=== PATIENT | female | born 1930 | race African-American/Black ===

== ENCOUNTER 2016-04-09 18:46 | Emergency (ER) | payer MEDICARE ==
--- NOTE | 2016-04-09 19:03 | ER Document Report ---
ED Medical Screen (RME) - General Stated Complaint: WEAKNESS Time seen by provider: 18:57 Notes: Family members bring patient in today complaining of weakness since yesterday. Patient has been wheezing, short of breath, nasal and chest congestion for several days prior. Denies fever. Patient has a history of TIA, CVA 3, and dementia. I have greeted and performed a rapid initial assessment of this patient. A comprehensive ED assessment and evaluation of the patient, analysis of test results and completion of the medical decision making process will be conducted by additional ED providers. TRAVEL OUTSIDE OF THE [place] IN LAST 30 DAYS: No - Related Data Allergies/Adverse Reactions: Penicillins Allergy (Verified 04/09/16 18:58) Past Medical History - Past Medical History Cardiac Medical History: Reports: Hx Hypertension Neurological Medical History: Reports: Hx Seizures - Immunizations Hx Diphtheria, Pertussis, Tetanus Vaccination: Yes
[2016-04-09] MEDS ORDERED: NORMAL SALINE 500 ML IV PRN (19:27)
--- NOTE | 2016-04-09 19:27 | ER Document Report ---
ED Respiratory Problem - General Chief Complaint: Chest Congestion Stated Complaint: WEAKNESS Time seen by provider: 19:26 Mode of Arrival: Wheelchair Information source: Patient Notes: This is an 86-year-old female with a history of hypertension, CVA, seizures and early onset dementia who is brought into the emergency room because of generalized weakness, low-grade fever, shortness of breath and a nonproductive cough. TRAVEL OUTSIDE OF THE [place] IN LAST 30 DAYS: No - HPI Patient complains to provider of: Cough, Other - Generalized weakness Onset: Just prior to arrival Duration: Continuous Initiating Event: No: Allergy, Aspiration/Choking, Exertion, Exposure to chemicals, Exposure to dust, Exposure to fumes, Exposure to mold, Exposure to smoke, Out of meds, Sports/exercise, URI, Other Quality of pain: No pain Severity: None Pain Level: Denies Chest pain/discomfort: denies: Center, Constant, Heaviness, Intermittent, Left, Pain, Radiates to arm, Radiates to back, Radiates to jaw, Right, Tightness, Worse with deep breaths Cough: Nonproductive Sputum amount: denies: None, Scant, Small, Moderate, Large, Copious Sputum color: denies: Brown, Clear, Creamy, [place], Green, [place] tinged, Red (blood ), Red Specks, Rust, Small Clots, Wick, White, Yellow Sputum consistency: denies: Frothy, Mucoid, Mucoid Plug, Tenacious, Thick, Thin At home treatment: denies: Bronchodilators, CPAP, Diuretics, Inhaled steroids, Oral steroids, Oxygen, Singulair, Theophylline Associated symptoms: Congestion, Cough, Other - Generalized weakness Similar symptoms previously: No Recently seen / treated by doctor: No - Related Data Allergies/Adverse Reactions: Penicillins Allergy (Verified 04/09/16 18:58) Past Medical History - General Information source: Relative - Patient's son - Social History Smoking Status: Never Smoker Cigarette use (# per day): No Chew tobacco use (# tins/day): No Frequency of alcohol use: None Drug Abuse: None Lives with: Family Family History: None Patient has suicidal ideation: No Patient has homicidal ideation: No - Past Medical History Cardiac Medical History: Reports: Hx Hypertension Neurological Medical History: Reports: Hx Seizures Renal/ Medical History: Denies: Hx Peritoneal Dialysis Malignancy Medical History: Reports: None GI Medical History: Reports: None Musculoskeltal Medical History: Reports Hx Arthritis Skin Medical History: Reports None Psychiatric Medical History: Reports: None Traumatic Medical History: Reports: None Infectious Medical History: Reports: None Surgical Hx: Other - Immunizations Hx Diphtheria, Pertussis, Tetanus Vaccination: Yes Review of Systems - Review of Systems Notes: Review of systems: Constitutional: Denies fever, chills. EENT: Denies ear pain, sinus tenderness, throat pain, throat swelling. Cardiovascular: Denies chest pain, palpitations, dyspnea or edema. Respiratory: Nonproductive cough. Denies hemoptysis. Abdomen: Denies abdominal pain, nausea, vomiting, diarrhea. Denies BRBPR or melena. Genitourinary: Denies dysuria, pyuria, hematuria, flank pain. Musculoskeletal: denies joint pain or swelling, denies back pain. Neurologic: Some generalized weakness. Denies headache, photophobia, neck stiffness, weakness. Denies significant change in mental status. Skin: Denies rash, lesions. Physical Exam - Vital signs Vitals: Temp Pulse Resp BP Pulse Ox 99.3 F 91 24 H 157/65 H 96 04/09/16 19:01 04/09/16 19:01 04/09/16 19:01 04/09/16 19:01 04/09/16 19:01 Notes: Physical exam: GENERAL: 86-year-old female, resting comfortably, she does have dementia ( mental status is baseline as per patient's family). Her skin is warm, no distress. She does appear weak. HEAD: Atraumatic, normocephalic. EYES: Pupils equal round and reactive to light, extraocular movements intact, sclera anicteric, conjunctiva are normal. ENT: TMs normal, nares patent, oropharynx clear without exudates. Moist mucous membranes. NECK: Normal range of motion, supple without lymphadenopathy or JVD. LUNGS: Breath sounds clear to auscultation bilaterally and equal. No wheezes rales or rhonchi. HEART: Regular rate and rhythm without murmurs, rubs or gallops. ABDOMEN: Soft, normoactive bowel sounds. No tenderness to palpation. No guarding, no rebound. No masses appreciated. EXTREMITIES: Normal range of motion, no pitting or edema. No clubbing or cyanosis. NEUROLOGICAL: Cranial nerves II through XII grossly intact. Normal speech, moving all extremities. PSYCH: Normal mood, normal affect. SKIN: Warm, Dry, normal turgor, no rashes or lesions noted. Course - Vital Signs Vital signs: Temp Pulse Resp BP Pulse Ox 100.0 F 70 18 141/58 H 96 04/09/16 23:48 04/09/16 23:48 04/09/16 23:48 04/09/16 23:48 04/09/16 23:48 - Laboratory Result Diagrams: 04/09/16 20:25 04/09/16 22:14 Laboratory results interpreted by me: 04/09/16 04/09/16 04/09/16 20:25 21:04 22:14 Plt Count 148 L Seg Neutrophils % 84.2 H Lymphocytes % 10.2 L Chloride 108 H Total Protein 6.2 L Albumin 3.4 L Urine Protein 100 H Urine Blood LARGE H - Diagnostic Test Radiology reviewed: Image reviewed, Reports reviewed - Chest x-ray shows no infiltrates or effusions - EKG Interpretation by Me Rate: Normal Rhythm: NSR - EKG shows normal sinus rhythm with no acute ST-T wave changes, ventricular rate 77. Discharge - Discharge Clinical Impression: bronchitis with bronchospasm Clinical Impression: (Ruled Out): rhonchi at his with bronchospasm Condition: Stable Disposition: HOME, SELF-CARE Instructions: Bronchitis With Bronchospasm (Wheezing) ([facility], [facility]) Additional Instructions: Recommendations: Rest, encourage fluids. Start the antibiotics first thing in the morning. Take the 2 tablets in the morning, then start the Z-Jason the following day. Follow-up with Dr. Dodson: Call the office on Monday. Return to the emergency room for any concerns that Ms. Grant is getting worse , having more difficulty breathing or is not tolerating fluids. Prescriptions: Azithromycin [Zithromax 250 mg Tablet] 250 mg PO ASDIR PRN #6 tablet PRN Reason: Referrals: JAYMIE DODSON MD [Primary Care Provider] - 04/11/16
[2016-04-09 20:36] LABS: ABSOLUTE BASOPHILS # (AUTO) 0.1 10^3/uL (0.0-0.2); ABSOLUTE LYMPHOCYTES (AUTO) 0.8 10^3/uL (0.5-4.7); ABSOLUTE MONOCYTES (AUTO) 0.4 10^3/uL (0.1-1.4); ABSOLUTE NEUT (AUTO) 6.6 10^3/uL (1.7-8.2); BASOPHILS % (AUTO) 0.7 % (0-2); EOSINOPHILS % (AUTO) 0.1 % (0-6); HEMATOCRIT 40.1 % (36.0-47.0); HEMOGLOBIN 13.4 g/dL (12.0-15.5); HGB HCT DIFFERENCE 0.1; LYMPHOCYTES % (AUTO) 10.2 % (13-45); MEAN CORPUSCULAR HEMOGLOBIN 30.5 pg (27.0-33.4); MEAN CORPUSCULAR HGB CONC 33.5 g/dL (32.0-36.0); MEAN CORPUSCULAR VOLUME 91 fl (80-97); MONOCYTES % (AUTO) 4.8 % (3-13); RED BLOOD COUNT 4.41 10^6/uL (3.72-5.28); RED CELL DISTRIBUTION WIDTH 13.5 % (11.5-14.0); SEGMENTED NEUTROPHILS % (AUTO) 84.2 % (42-78); WHITE BLOOD COUNT 7.8 10^3/uL (4.0-10.5)
[2016-04-09 21:22] LABS: APPEARANCE,URINE SLIGHTLY-CLOUDY; BILIRUBIN,URINE NEGATIVE (NEGATIVE); GLUCOSE, URINE NEGATIVE (NEGATIVE); KETONES,URINE NEGATIVE (NEGATIVE); LEUKOCYTE ESTERASE,URINE NEGATIVE (NEGATIVE); NITRITE,URINE NEGATIVE (NEGATIVE); PROTEIN,URINE 100 mg/dL (NEGATIVE); URINE SPECIFIC GRAVITY 1.017; UROBILINOGEN,URINE NEGATIVE mg/dL (<2.0)
--- NOTE | 2016-04-09 22:10 | EKG REPORT ---
SEVERITY:- ABNORMAL ECG - SINUS RHYTHM LEFT ANTERIOR FASCICULAR BLOCK CONSIDER LEFT VENTRICULAR HYPERTROPHY : Confirmed by: Armando Gleason 09-Apr-2016 22:10:31
[2016-04-09 22:42] LABS: ALANINE AMINOTRANSFERASE 36 U/L (9-52); ALBUMIN 3.4 g/dL (3.5-5.0); ALKALINE PHOSPHATASE 66 U/L (38-126); ANION GAP 11 (5-19); ASPARTATE AMINO TRANSFERASE 34 U/L (14-36); BILIRUBIN,TOTAL 0.3 mg/dL (0.2-1.3); BLOOD UREA NITROGEN 15 mg/dL (7-20); CARBON DIOXIDE 24 mmol/L (22-30); CHLORIDE 108 mmol/L (98-107); CREATINE KINASE 39 U/L (30-135); GLUCOSE 107 mg/dL (75-110); POTASSIUM 4.1 mmol/L (3.6-5.0); SODIUM 142.6 mmol/L (137-145); TOTAL PROTEIN 6.2 g/dL (6.3-8.2)
[2016-04-09 22:56] LABS: CREATINE KINASE MB < 0.22 ng/mL (<4.55); TROPONIN I < 0.012 ng/mL
[2016-04-09] MEDS ORDERED: AZITHROMYCIN 250 MG TABLET PO ONE (23:11)
[2016-04-09 23:51] VITALS: BP 141/58
== END 2016-04-09 23:45 | disposition home or self-care (01) ==
LOC: ER 18:46
DX: J40 Bronchitis, not specified as acute or chronic (principal); J98.01 Acute bronchospasm; R53.1 Weakness; R06.02 Shortness of breath; R05 Cough; I10 Essential (primary) hypertension; F03.90 Unspecified dementia, unspecified severity, without behavioral disturbance, psychotic disturbance, mood disturbance, and anxiety; Z86.73 Personal history of transient ischemic attack (TIA), and cerebral infarction without residual deficits; Z88.0 Allergy status to penicillin
CPT/HCPCS: 93005; 99284; 96360; 36415; 82553; 82550; 85025; 85610; 80053; 81001; 84484; 87804; 71010; 93010; J7040

== ENCOUNTER 2016-04-11 23:49 | Inpatient (IN) | payer MEDICARE ==
--- NOTE | 2016-04-12 00:10 | ER Document Report ---
ED Medical Screen (RME) - General Chief Complaint: Fever Stated Complaint: FEVER Time seen by provider: 00:06 Mode of Arrival: Wheelchair Information source: Relative Notes: 86-year-old female presents to ED for fever this started this evening about 7 PM. Her daughter states that at first it was 99.3, then the next time her temperature was taken was 101.4 around 8:30 tonight. Then around 11:00 it was 102.6. Daughter states she's been more and more thorough lethargic night tonight. Daughter states she was just in the emergency room on Monday evening with a fever chest congestion and wheezing. She was diagnosed with a virus since pneumonia. Patient was started on azithromycin that she started Monday morning. I have greeted and performed a rapid initial assessment of this patient. A comprehensive ED assessment and evaluation of the patient, analysis of test results and completion of medical decision making process will be conducted by an additional ED providers. TRAVEL OUTSIDE OF THE [place] IN LAST 30 DAYS: No - Related Data Allergies/Adverse Reactions: Penicillins Allergy (Verified 04/09/16 18:58) Past Medical History - Past Medical History Cardiac Medical History: Reports: Hx Hypertension Neurological Medical History: Reports: Hx Seizures Renal/ Medical History: Denies: Hx Peritoneal Dialysis Musculoskeltal Medical History: Reports Hx Arthritis - Immunizations Hx Diphtheria, Pertussis, Tetanus Vaccination: Yes
[2016-04-12] MEDS ORDERED: ACETAMINOPHEN 325 MG TABLET PO ONE (00:14)
[2016-04-12] MEDS ORDERED: ACETAMINOPHEN 650 MG SUPP.RECT PR ONE ×2 (00:22→00:23)
[2016-04-12] MEDS ORDERED: NORMAL SALINE 1000 ML 1,000 ML IV ONE (00:23)
[2016-04-12] MEDS ORDERED: ACETAMINOPHEN 325 MG SUPP.RECT PR ONE (00:23)
[2016-04-12] MEDS ORDERED: LEVOFLOXACIN 750 MG/D5W RTU 150 ML IV ONE (00:24)
[2016-04-12] MEDS ORDERED: CEFEPIME 1 GM/D5W RTU 50 ML IV ONE (00:24)
--- NOTE | 2016-04-12 00:24 | ER Document Report ---
ED General - General Mode of Arrival: Wheelchair Information source: Patient TRAVEL OUTSIDE OF THE [place] IN LAST 30 DAYS: No - HPI Patient complains to provider of: Fever Onset: Other - 04/08/2016 Onset/Duration: Worse Associated symptoms: Productive cough, Fever <SUZE REYNOSO - Last Filed: 04/12/16 05:11> <XOCHILT HANSEN - Last Filed: 04/12/16 06:27> - General Chief Complaint: Fever Stated Complaint: FEVER Notes: Patient is an 86 y/o female presenting to the emergency department accompanied by a family member who is concerned because the patient has an increasing fever and is intermittently unresponsive. Patient was seen here 04/09/2016 and discharged with Zythromycin, which she began taking 04/10/2016. Patient is experiencing cough, wheeze, chest congestion, and fever. All of these symptoms began 04/08/2016, but have progressively worsened. (SUZE REYNOSO) - Related Data Allergies/Adverse Reactions: Penicillins Allergy (Verified 04/09/16 18:58) Home Medications: Current Home Medications Amlodipine/Valsartan [Amlodipine-Valsartan 5-160 mg] 1 each PO DAILY 04/12/16 [ History] Bimatoprost [Lumigan] 1 drop OP DAILY 04/12/16 [History] Clopidogrel Bisulfate [Clopidogrel] 75 mg PO DAILY 04/12/16 [History] Cyanocobalamin/FA/Pyridoxine [Combgen Tablet] 1 each PO 04/12/16 [History] Donepezil HCl 10 mg PO DAILY 04/12/16 [History] Hydrochlorothiazide 12.5 mg PO DAILY 04/12/16 [History] Lamotrigine [Lamictal Xr] 200 mg PO DAILY 04/12/16 [History] Levetiracetam 500 mg PO BID 04/12/16 [History] Megestrol Acetate 40 mg PO DAILY 04/12/16 [History] Memantine HCl [Namenda Xr] 28 mg PO DAILY 04/12/16 [History] Past Medical History - General Information source: Relative - Social History Smoking Status: Former Smoker Frequency of alcohol use: None Drug Abuse: None Family History: None, Reviewed & Not Pertinent Patient has suicidal ideation: No Patient has homicidal ideation: No - Past Medical History Cardiac Medical History: Reports: Hx Hypertension Neurological Medical History: Reports: Hx Seizures Musculoskeltal Medical History: Reports Hx Arthritis - Immunizations Hx Diphtheria, Pertussis, Tetanus Vaccination: Yes <SUZE REYNOSO - Last Filed: 04/12/16 05:11> Review of Systems - Review of Systems Constitutional: See HPI, Fever EENT: No symptoms reported Cardiovascular: No symptoms reported Respiratory: See HPI, Cough, Wheezing Gastrointestinal: No symptoms reported Genitourinary: No symptoms reported Female Genitourinary: No symptoms reported Musculoskeletal: No symptoms reported Skin: No symptoms reported Hematologic/Lymphatic: No symptoms reported Neurological/Psychological: No symptoms reported -: Yes All other systems reviewed and negative <SUZE REYNOSO - Last Filed: 04/12/16 05:11> Physical Exam - Vital signs Interpretation: Tachycardic, Febrile - General General appearance: Other - Drowsy but arousable In distress: Mild - HEENT Head: Normocephalic, Atraumatic Eyes: Normal Pupils: PERRL - Respiratory Breath sounds: Decreased air movement - Left base, Rales - Left base <SUZE REYNOSO - Last Filed: 04/12/16 05:11> - Cardiovascular Rhythm: Regular - Abdominal Inspection: Normal Tenderness: Nontender - Back Back: Normal - Extremities General upper extremity: Normal inspection, Normal ROM General lower extremity: Normal inspection, Normal ROM - Skin Skin Temperature: Warm Skin Moisture: Dry Skin Color: Normal <XOCHILT HANSEN - Last Filed: 04/12/16 06:27> - Vital signs Vitals: Resp 20 04/12/16 00:38 (XOCHILT HANSEN) Course - Laboratory Result Diagrams: 04/12/16 01:00 04/12/16 01:36 - Consults Jolly Time consulted: 02:30 - Paged. Awaiting return call. <SUZE REYNOSO - Last Filed: 04/12/16 05:11> - Laboratory Result Diagrams: 04/12/16 01:00 04/12/16 01:36 - Diagnostic Test Radiology reviewed: Reports reviewed <XOCHILT HANSEN - Last Filed: 04/12/16 06:27> - Re-evaluation Re-evalutation: 04/11 Patient is an 86-year-old female who presents with fever and altered mental status. Patient had a cough. Patient has decreased breath sounds and rales in the left base. Initial temperature is 103. Patient is given fluids and acetaminophen. She is more awake and less confused. Patient been treated with outpatient azithromycin and has continued to worsen per her family. Flu is negative. Patient will be started on antibiotics with culture sent and admitted for further evaluation of her symptoms. Stable time of admission. Family agrees with plan. (XOCHILT HANSEN) - Vital Signs Vital signs: Temp Pulse Resp BP Pulse Ox 98.8 F 73 20 154/68 H 100 04/12/16 06:00 04/12/16 06:00 04/12/16 06:00 04/12/16 06:00 04/12/16 06:00 (XOCHILT HANSEN) - Laboratory Laboratory results interpreted by me: 04/12/16 04/12/16 04/12/16 01:00 01:36 01:50 Plt Count 134 L Chloride 108 H Est GFR (Non-Af Amer) 57 L Glucose 129 H AST 41 H Albumin 3.0 L Urine Protein 100 H Urine Blood MODERATE H (XOCHILT HANSEN) - Consults Jolly Reason for consultation: 04/12/16 03:32 Have not heard back from Dr. Azevedo, so re-paged. Awaiting call back. 04/12/16 04:[address] Azevedo about patient's case. He will admit patient. (SUZE REYNOSO) Discharge <SUZE REYNOSO - Last Filed: 04/12/16 05:11> - Discharge Admitting Provider: Jolly Unit Admitted: Telemetry <XOCHILT HANSEN - Last Filed: 04/12/16 06:27> - Discharge Clinical Impression: Fever Qualifiers: Fever type: unspecified Qualified Code(s): R50.9 - Fever, unspecified Altered mental status Qualifiers: Altered mental status type: unspecified Qualified Code(s): R41.82 - Altered mental status, unspecified Condition: Stable Disposition: ADMITTED INPATIENT Scribe Attestation: 04/12/16 06:27 I personally performed the services described in the documentation, reviewed and edited the documentation which was dictated to the scribe in my presence, and it accurately records my words and actions. (XOCHILT HANSEN) Scribe Documentation - Scribe Written by Jessica:: Suze Reynoso 04/12/2016 0023 acting as scribe for :: Panda <SUZE REYNOSO - Last Filed: 04/12/16 05:11>
[2016-04-12 01:24] LABS: ABSOLUTE LYMPHOCYTES (AUTO) 0.9 10^3/uL (0.5-4.7); ABSOLUTE MONOCYTES (AUTO) 0.3 10^3/uL (0.1-1.4); ABSOLUTE NEUT (AUTO) 4.2 10^3/uL (1.7-8.2); BASOPHILS % (AUTO) 0.4 % (0-2); EOSINOPHILS % (AUTO) 0.8 % (0-6); HEMATOCRIT 36.2 % (36.0-47.0); HEMOGLOBIN 12.2 g/dL (12.0-15.5); HGB HCT DIFFERENCE 0.4; LYMPHOCYTES % (AUTO) 16.2 % (13-45); MEAN CORPUSCULAR HEMOGLOBIN 30.6 pg (27.0-33.4); MEAN CORPUSCULAR HGB CONC 33.6 g/dL (32.0-36.0); MEAN CORPUSCULAR VOLUME 91 fl (80-97); MONOCYTES % (AUTO) 5.8 % (3-13); RED BLOOD COUNT 3.98 10^6/uL (3.72-5.28); RED CELL DISTRIBUTION WIDTH 13.8 % (11.5-14.0); SEGMENTED NEUTROPHILS % (AUTO) 76.8 % (42-78); WHITE BLOOD COUNT 5.4 10^3/uL (4.0-10.5)
[2016-04-12 01:49] LABS: VENOUS BLOOD BASE EXCESS -0.3 mmol/L; VENOUS BLOOD HCO3 24.3 mmol/L (20-32); VENOUS BLOOD PCO2 39.9 mmHg (35-63); VENOUS BLOOD PH 7.4 (7.30-7.42)
[2016-04-12 02:11] LABS: ALANINE AMINOTRANSFERASE 27 U/L (9-52); ALKALINE PHOSPHATASE 61 U/L (38-126); ANION GAP 10 (5-19); ASPARTATE AMINO TRANSFERASE 41 U/L (14-36); BILIRUBIN,TOTAL 0.5 mg/dL (0.2-1.3); BLOOD UREA NITROGEN 20 mg/dL (7-20); CARBON DIOXIDE 24 mmol/L (22-30); CHLORIDE 108 mmol/L (98-107); CREATINE KINASE 76 U/L (30-135); CREATININE RESULT 0.93 mg/dL (0.52-1.25); GLUCOSE 129 mg/dL (75-110); POTASSIUM 4.1 mmol/L (3.6-5.0); TOTAL PROTEIN 6.4 g/dL (6.3-8.2)
[2016-04-12] MEDS ORDERED: CEFEPIME 1 GM/D5W RTU 1 GM/50 ML RTUPB IV ONE (02:36)
[2016-04-12 02:46] LABS: APPEARANCE,URINE SLIGHTLY-CLOUDY; BILIRUBIN,URINE NEGATIVE (NEGATIVE); GLUCOSE, URINE NEGATIVE (NEGATIVE); KETONES,URINE NEGATIVE (NEGATIVE); LEUKOCYTE ESTERASE,URINE NEGATIVE (NEGATIVE); NITRITE,URINE NEGATIVE (NEGATIVE); PROTEIN,URINE 100 mg/dL (NEGATIVE); URINE SPECIFIC GRAVITY 1.017; UROBILINOGEN,URINE NEGATIVE mg/dL (<2.0)
[2016-04-12] MEDS ORDERED: NORMAL SALINE 1000 ML 1,000 ML IV PRN (08:24)
[2016-04-12] MEDS ORDERED: ACETAMINOPHEN 325 MG TABLET PO PRN (08:27)
--- NOTE | 2016-04-12 08:44 | PDOC H&P ---
History of Present Illness Admission Date/PCP: 04/12/16 02:36 Patient complains of: Fever, Cough, Change in mentation History of Present Illness: RUBIN VARGAS is a 86 year old female presented to ED by family with reported worsening altered mentation, fever and coughing since her discharegd from ED on 04/09/16. Family reported administration of prescribed Azithromycin but her temperature was recorded at home at 101 and 102 F prior to presenting to the ED. Family reported associated chest congestion and wheezing. There is no reported nausea or vomiting. She was tolerating oral intake prior to her worsen mental change. Her initial evaluation in the Ed was suggestive of abnormal urinalysis and possible early developing pneumonia. Patient was subsequently advised hospitalization for further evaluation and management. Past Medical History Cardiac Medical History: Reports: Hypertension Neurological Medical History: Reports: Seizures Musculoskeltal Medical History: Reports: Arthritis Social History Smoking Status: Never Smoker Frequency of Alcohol Use: None Hx Recreational Drug Use: No Drugs: None Hx Prescription Drug Abuse: No Family History Family History: None, Reviewed & Not Pertinent Parental Family History Reviewed: Yes Children Family History Reviewed: Yes Sibling(s) Family History Reviewed.: Yes Medication/Allergy Home Medications: Azithromycin [Zithromax 250 mg Tablet] 250 mg PO ASDIR PRN #6 tablet 04/09/16 Amlodipine/Valsartan [Amlodipine-Valsartan 5-160 mg] 1 each PO DAILY 04/12/16 Bimatoprost [Lumigan] 1 drop OP DAILY 04/12/16 Clopidogrel Bisulfate [Clopidogrel] 75 mg PO DAILY 04/12/16 Cyanocobalamin/FA/Pyridoxine [Combgen Tablet] 1 each PO 04/12/16 Donepezil HCl 10 mg PO DAILY 04/12/16 Hydrochlorothiazide 12.5 mg PO DAILY 04/12/16 Lamotrigine [Lamictal Xr] 200 mg PO DAILY 04/12/16 Levetiracetam 500 mg PO BID 04/12/16 Megestrol Acetate 40 mg PO DAILY 04/12/16 Memantine HCl [Namenda Xr] 28 mg PO DAILY 04/12/16 Allergies/Adverse Reactions: Penicillins Allergy (Verified 04/09/16 18:58) Review of Systems All systems: reviewed and no additional remarkable complaints except as stated Physical Exam Vital Signs: Temp Pulse Resp BP Pulse Ox 98.4 F 62 17 145/57 H 97 04/12/16 06:59 04/12/16 06:59 04/12/16 06:59 04/12/16 06:59 04/12/16 06:59 Intake & Output 04/11/16 04/12/16 04/13/16 06:59 06:59 06:59 Weight 26.4 kg General appearance: PRESENT: cooperative Head exam: PRESENT: atraumatic, normocephalic Eye exam: PRESENT: conjunctiva pink, EOMI, PERRLA Ear exam: PRESENT: normal external ear exam Mouth exam: PRESENT: moist Throat exam: ABSENT: post pharyngeal erythema, tonsillar erythema, tonsillar exudate, tonsillogmegaly, other Neck exam: PRESENT: full ROM. ABSENT: carotid bruit, JVD, lymphadenopathy, thyromegaly Respiratory exam: PRESENT: decreased breath sounds - at lung bases. ABSENT: accessory muscle use, chest wall tenderness, clear to auscultation laura, crackles , prolonged expiratory phas, rales, retraction, rhonchi, stridor, symmetrical, tachypnea, unlabored, wheezes, other Cardiovascular exam: PRESENT: RRR. ABSENT: diastolic murmur, rubs, systolic murmur Pulses: PRESENT: normal dorsalis pedis pul, +2 pedal pulses bilateral Vascular exam: PRESENT: normal capillary refill GI/Abdominal exam: PRESENT: normal bowel sounds, soft. ABSENT: distended, guarding, mass, organolmegaly, rebound, tenderness Extremities exam: PRESENT: full ROM Musculoskeletal exam: PRESENT: deformity - related to joint involvement with arthritis Psychiatric exam: PRESENT: appropriate affect Skin exam: PRESENT: dry, intact, warm. ABSENT: cyanosis, rash Results Impressions: Chest X-Ray 04/12/16 00:00 IMPRESSION: NO ACUTE RADIOGRAPHIC FINDING IN THE CHEST. NO SIGNIFICANT CHANGE FROM PRIOR STUDY. Assessment & Plan - Diagnosis (2) Pneumonia Is this a current diagnosis for this admission?: YesPlan: see admitting physician orders (3) Probable sepsis Is this a current diagnosis for this admission?: YesPlan: see admitting physician orders (4) UTI (urinary tract infection) Is this a current diagnosis for this admission?: YesPlan: see admitting physician orders (5) HTN (hypertension) Is this a current diagnosis for this admission?: YesPlan: see admitting physician orders (6) Seizure disorder Is this a current diagnosis for this admission?: YesPlan: see admitting physician orders - Time Time Spent: 50 to 70 Minutes Medications reviewed and adjusted accordingly: Yes Anticipated discharge: Home with Homehealth - Inpatient Certification Medical Necessity: Need Close Monitoring Due to Risk of Patient Decompensation, Need For IV Fluids, Need for IV Antibiotics, Risk of Complication if Not Cared For in Hospital Post Hospital Care: D/C Control Systems Specialist Documentation - Plan Summary Plan Summary: see admitting physician orders
[2016-04-12] MEDS ORDERED: ENOXAPARIN SODIUM INJ 30 MG/0.3 ML DISP.SYRIN SUBCUT ONE (09:00)
[2016-04-12] MEDS ORDERED: AMLODIPINE PO SCH (10:00)
[2016-04-12] MEDS ORDERED: (PENDING PHARMACY ID) (Megestrol Acetate [Megestrol Acetate] 40 MG) PO SCH (10:00)
[2016-04-12] MEDS ORDERED: VALSARTAN PO SCH (10:00)
[2016-04-12] MEDS ORDERED: (PENDING PHARMACY ID) (Memantine Hcl [Namenda Xr] 28 MG) PO SCH (10:00)
[2016-04-12] MEDS ORDERED: (PENDING PHARMACY ID) (Lamotrigine [Lamictal Xr] 200 MG) PO SCH (10:00)
[2016-04-12] MEDS ORDERED: (PENDING PHARMACY ID) (Donepezil Hcl [Donepezil Hcl] 10 MG) PO SCH (10:00)
[2016-04-12] MEDS: LANSOPRAZOLE 30 MG TAB.RAP.DR PO SCH (10:04)
[2016-04-12] MEDS: CLOPIDOGREL BISULFATE 75 MG TABLET PO SCH (10:04)
[2016-04-12] MEDS: BIMATOPROST 0.01% OPH SOLN 2.5 ML/BOTTLE OP SCH (10:05)
[2016-04-12] MEDS: LEVETIRACETAM 500 MG TABLET PO SCH ×2 (10:05→21:26)
[2016-04-12] MEDS ORDERED: AMLODIPINE BESYLATE 5 MG TABLET PO ONE (11:00)
[2016-04-12] MEDS ORDERED: VALSARTAN 160 MG TABLET PO ONE (11:00)
[2016-04-12] MEDS ORDERED: DONEPEZIL HCL 5 MG TABLET PO ONE (11:00)
[2016-04-12] MEDS ORDERED: MEGESTROL ACETATE 20 MG TABLET PO ONE (11:00)
[2016-04-12 11:08] LABS: PARTIAL THROMBOPLASTIN TIME 39.6 SEC (23.5-35.8); PROTHROMBIN TIME 13.9 SEC (11.4-15.4)
[2016-04-12] MEDS: LAMOTRIGINE 100 MG TABLET PO SCH (21:26)
[2016-04-12] MEDS: CEFEPIME 1 GM/D5W RTU 50 ML IV SCH (21:27)
[2016-04-12] MEDS: TIMOLOL MALEATE 0.5% OPH SOLN 5 ML OU SCH (21:52)
[2016-04-12] MEDS: BRIMONIDINE TARTRATE 0.2% OPH SOLN 5 ML OU SCH (21:52)
[2016-04-13] MEDS ORDERED: EPOETIN ALFA 10,000 UNIT in SYRINGE, DISPOSABLE, 1 EACH IV PRN (05:00)
[2016-04-13] MEDS ORDERED: HEPARIN SOD (PORCINE) 1,000 UNIT/ML 10 ML VIAL IV PRN (05:00)
[2016-04-13 07:45] LABS: ABSOLUTE EOSINOPHILS # (AUTO) 0.1 10^3/uL (0.0-0.6); ABSOLUTE LYMPHOCYTES (AUTO) 1.4 10^3/uL (0.5-4.7); ABSOLUTE MONOCYTES (AUTO) 0.4 10^3/uL (0.1-1.4); ABSOLUTE NEUT (AUTO) 2.7 10^3/uL (1.7-8.2); BASOPHILS % (AUTO) 0.2 % (0-2); EOSINOPHILS % (AUTO) 1.2 % (0-6); HEMATOCRIT 31.8 % (36.0-47.0); HEMOGLOBIN 10.9 g/dL (12.0-15.5); HGB HCT DIFFERENCE 0.9; LYMPHOCYTES % (AUTO) 30.4 % (13-45); MEAN CORPUSCULAR HEMOGLOBIN 30.7 pg (27.0-33.4); MEAN CORPUSCULAR HGB CONC 34.2 g/dL (32.0-36.0); MEAN CORPUSCULAR VOLUME 90 fl (80-97); MONOCYTES % (AUTO) 9.3 % (3-13); RED BLOOD COUNT 3.54 10^6/uL (3.72-5.28); RED CELL DISTRIBUTION WIDTH 12.9 % (11.5-14.0); SEGMENTED NEUTROPHILS % (AUTO) 58.9 % (42-78); WHITE BLOOD COUNT 4.6 10^3/uL (4.0-10.5)
[2016-04-13 08:10] LABS: ALANINE AMINOTRANSFERASE 28 U/L (9-52); ALBUMIN 2.7 g/dL (3.5-5.0); ALKALINE PHOSPHATASE 49 U/L (38-126); ANION GAP 9 (5-19); ASPARTATE AMINO TRANSFERASE 26 U/L (14-36); BILIRUBIN,TOTAL 0.4 mg/dL (0.2-1.3); BLOOD UREA NITROGEN 13 mg/dL (7-20); CALCIUM 8.7 mg/dL (8.4-10.2); CARBON DIOXIDE 20 mmol/L (22-30); CHLORIDE 112 mmol/L (98-107); CREATININE RESULT 0.64 mg/dL (0.52-1.25); GLUCOSE 89 mg/dL (75-110); POTASSIUM 3.8 mmol/L (3.6-5.0); SODIUM 140.9 mmol/L (137-145); TOTAL PROTEIN 5.2 g/dL (6.3-8.2)
[2016-04-13] MEDS: ENOXAPARIN SODIUM INJ 30 MG/0.3 ML DISP.SYRIN SUBCUT SCH (08:15)
--- NOTE | 2016-04-13 08:30 | PDOC PROGRESS REPORT ---
Subjective Progress Note for:: 04/13/16 Subjective:: No reported fever or chills. No nausea or vomiting. Tolerating oral feeding. Nonspecific cc about LLQ pain. No chest pain or difficulty with breathing. Remain on IV Cefepime and Levofloxacin coverage. Blood and Urine cultures are no growth to date. Physical Exam Vital Signs: Temp Pulse Resp BP Pulse Ox 98.4 F 59 L 17 150/71 H 100 04/13/16 04:43 04/13/16 07:00 04/13/16 04:43 04/13/16 06:00 04/13/16 04:43 Intake & Output 04/12/16 04/13/16 04/14/16 06:59 06:59 06:59 Intake Total 2004 Output Total 150 Balance 1854 General appearance: PRESENT: no acute distress, thin Head exam: PRESENT: atraumatic, normocephalic Eye exam: PRESENT: conjunctiva pink, EOMI, PERRLA Mouth exam: PRESENT: moist Respiratory exam: PRESENT: crackles, decreased breath sounds. ABSENT: accessory muscle use, chest wall tenderness, clear to auscultation laura, prolonged expiratory phas, rales, retraction, rhonchi, stridor, symmetrical, tachypnea, unlabored, wheezes, other Cardiovascular exam: PRESENT: RRR. ABSENT: diastolic murmur, rubs, systolic murmur GI/Abdominal exam: PRESENT: normal bowel sounds, soft. ABSENT: distended, guarding, mass, organolmegaly, rebound, tenderness Extremities exam: PRESENT: full ROM Musculoskeletal exam: PRESENT: deformity - related to joint arthritis involvement, other - generalized muscle wasting. Neurological exam: PRESENT: alert, awake Psychiatric exam: PRESENT: appropriate affect, normal mood. ABSENT: homicidal ideation, suicidal ideation Skin exam: PRESENT: dry, intact, warm. ABSENT: cyanosis, rash Results Laboratory Results: 04/13/16 06:52 04/13/16 06:52 04/13/16 04/13/16 06:52 06:52 WBC 4.6 RBC 3.54 L Hgb 10.9 L Hct 31.8 L MCV 90 MCH 30.7 MCHC 34.2 RDW 12.9 Plt Count 127 L Seg Neutrophils % 58.9 Lymphocytes % 30.4 Monocytes % 9.3 Eosinophils % 1.2 Basophils % 0.2 Absolute Neutrophils 2.7 Absolute Lymphocytes 1.4 Absolute Monocytes 0.4 Absolute Eosinophils 0.1 Absolute Basophils 0.0 Sodium 140.9 Potassium 3.8 Chloride 112 H Carbon Dioxide 20 L Anion Gap 9 BUN 13 Creatinine 0.64 Est GFR ( Amer) > 60 Est GFR (Non-Af Amer) > 60 Glucose 89 Calcium 8.7 Total Bilirubin 0.4 AST 26 ALT 28 Alkaline Phosphatase 49 Total Protein 5.2 L Albumin 2.7 L Impressions: Chest X-Ray 04/12/16 00:00 IMPRESSION: NO ACUTE RADIOGRAPHIC FINDING IN THE CHEST. NO SIGNIFICANT CHANGE FROM PRIOR STUDY. Assessment & Plan - Diagnosis (1) Toxic metabolic encephalopathy Is this a current diagnosis for this admission?: YesPlan: Improving mental status and in simple responses. (2) Pneumonia Is this a current diagnosis for this admission?: YesPlan: see attending physician orders (3) Probable sepsis Is this a current diagnosis for this admission?: YesPlan: see attending physician orders (4) UTI (urinary tract infection) Is this a current diagnosis for this admission?: YesPlan: see attending physician orders (5) HTN (hypertension) Is this a current diagnosis for this admission?: YesPlan: see attending physician orders (6) Seizure disorder Is this a current diagnosis for this admission?: YesPlan: see attending physician orders - Time Time Spent with patient: 25-34 minutes Medications reviewed and adjusted accordingly: Yes Anticipated discharge: Home with Homehealth Within: Other - Inpatient Certification Medical Necessity: Need Close Monitoring Due to Risk of Patient Decompensation, Need For IV Fluids, Need for IV Antibiotics, Risk of Complication if Not Cared For in Hospital Post Hospital Care: D/C Director Of Cardiac Rehabilitation Documentation - Plan Summary Plan Summary: see attending physician orders.
[2016-04-13] MEDS: MEGESTROL ACETATE 20 MG TABLET PO SCH (09:58)
[2016-04-13] MEDS: LAMOTRIGINE 100 MG TABLET PO SCH ×2 (09:59→21:31)
[2016-04-13] MEDS: LEVETIRACETAM 500 MG TABLET PO SCH ×2 (09:59→21:31)
[2016-04-13] MEDS: VALSARTAN 160 MG TABLET PO SCH (10:00)
[2016-04-13] MEDS: CLOPIDOGREL BISULFATE 75 MG TABLET PO SCH (10:00)
[2016-04-13] MEDS ORDERED: AMLODIPINE BESYLATE 5 MG TABLET PO SCH (10:00)
[2016-04-13] MEDS ORDERED: ALCAFTADINE OU SCH (10:00)
[2016-04-13] MEDS: DONEPEZIL HCL 5 MG TABLET PO SCH (10:00)
[2016-04-13] MEDS: LANSOPRAZOLE 30 MG TAB.RAP.DR PO SCH (10:01)
[2016-04-13] MEDS: TIMOLOL MALEATE 0.5% OPH SOLN 5 ML OU SCH ×2 (10:05→21:31)
[2016-04-13] MEDS: BRIMONIDINE TARTRATE 0.2% OPH SOLN 5 ML OU SCH ×2 (10:06→21:31)
[2016-04-13] MEDS: BIMATOPROST 0.01% OPH SOLN 2.5 ML/BOTTLE OP SCH (10:07)
[2016-04-13] MEDS ORDERED: AMLODIPINE BESYLATE 5 MG TABLET PO ONE (17:00)
[2016-04-13] MEDS ORDERED: HYDRALAZINE HCL INJ/PF 20 MG/1 ML SDV IV ONE (21:00)
[2016-04-13] MEDS: GUAIFENESIN 600 MG TABLET.SA PO SCH (21:31)
[2016-04-13] MEDS: CEFEPIME 1 GM/D5W RTU 50 ML IV SCH (21:31)
--- NOTE | 2016-04-14 08:30 | PDOC PROGRESS REPORT ---
Subjective Progress Note for:: 04/14/16 Subjective:: There was episode of significantly elevated blood pressure since last clinical assessment necessitating administration of extra dose of Amlodipine. No chest pain or difficulty with breathing. No nausea or vomiting. Tolerating oral feeding. No reported fever or chills. Remain on IV Cefepime and Levofloxacin coverage. Blood and Urine cultures are no growth to date. Physical Exam Vital Signs: Temp Pulse Resp BP Pulse Ox 98.4 F 55 L 17 157/69 H 100 04/13/16 23:40 04/14/16 02:00 04/13/16 23:40 04/13/16 23:40 04/13/16 23:40 Intake & Output 04/13/16 04/14/16 04/15/16 06:59 06:59 06:59 Intake Total 2004 320 Output Total 150 Balance 1854 320 Physical Exam: Head exam: PRESENT: atraumatic, normocephalic Eye exam: PRESENT: conjunctiva pink, EOMI, PERRLA Mouth exam: PRESENT: moist Respiratory exam: PRESENT: crackles, decreased breath sounds. ABSENT: accessory muscle use, chest wall tenderness, clear to auscultation laura, prolonged expiratory phas, rales, retraction, rhonchi, stridor, symmetrical, tachypnea, unlabored, wheezes, other Cardiovascular exam: PRESENT: RRR. ABSENT: diastolic murmur, rubs, systolic murmur GI/Abdominal exam: PRESENT: normal bowel sounds, soft. ABSENT: distended, guarding, mass, organolmegaly, rebound, tenderness Extremities exam: PRESENT: full ROM Musculoskeletal exam: PRESENT: deformity - related to joint arthritis involvement, other - generalized muscle wasting. Neurological exam: PRESENT: alert, awake Psychiatric exam: PRESENT: appropriate affect, normal mood. ABSENT: homicidal ideation, suicidal ideation Skin exam: PRESENT: dry, intact, warm. ABSENT: cyanosis, rash Results Laboratory Results: 04/13/16 06:52 04/13/16 06:52 Impressions: Chest X-Ray 04/12/16 00:00 IMPRESSION: NO ACUTE RADIOGRAPHIC FINDING IN THE CHEST. NO SIGNIFICANT CHANGE FROM PRIOR STUDY. Assessment & Plan - Diagnosis (1) Toxic metabolic encephalopathy Is this a current diagnosis for this admission?: YesPlan: Improving mental status and in simple responses. (2) Pneumonia Is this a current diagnosis for this admission?: YesPlan: Maintain on current antibiotic coverage. Follow up on culture findings. (3) Probable sepsis Is this a current diagnosis for this admission?: YesPlan: Maintain on current antibiotic coverage. Follow up on culture findings. (4) UTI (urinary tract infection) Is this a current diagnosis for this admission?: YesPlan: Maintain on current antibiotic coverage. Follow up on culture findings. (5) HTN (hypertension) Is this a current diagnosis for this admission?: YesPlan: I will increase Amlodipine to 10 mg p.o daily. She will continue Valsartan at 160mg p.o daily. 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
[2016-04-14] MEDS: ENOXAPARIN SODIUM INJ 30 MG/0.3 ML DISP.SYRIN SUBCUT SCH (08:51)
[2016-04-14] MEDS: LEVOFLOXACIN 500 MG/D5W RTU 500 MG/100 ML RTUPB IV SCH (09:51)
[2016-04-14] MEDS: GUAIFENESIN 600 MG TABLET.SA PO SCH ×2 (09:52→21:18)
[2016-04-14] MEDS: AMLODIPINE BESYLATE 10 MG TABLET PO SCH (09:52)
[2016-04-14] MEDS: LANSOPRAZOLE 30 MG TAB.RAP.DR PO SCH (09:52)
[2016-04-14] MEDS: LEVETIRACETAM 500 MG TABLET PO SCH ×2 (09:53→21:18)
[2016-04-14] MEDS: VALSARTAN 160 MG TABLET PO SCH (09:53)
[2016-04-14] MEDS: CLOPIDOGREL BISULFATE 75 MG TABLET PO SCH (09:53)
[2016-04-14] MEDS: MEGESTROL ACETATE 20 MG TABLET PO SCH (09:53)
[2016-04-14] MEDS: LAMOTRIGINE 100 MG TABLET PO SCH ×2 (09:53→21:18)
[2016-04-14] MEDS: DONEPEZIL HCL 5 MG TABLET PO SCH (09:54)
[2016-04-14] MEDS: BIMATOPROST 0.01% OPH SOLN 2.5 ML/BOTTLE OP SCH (09:54)
[2016-04-14] MEDS: TIMOLOL MALEATE 0.5% OPH SOLN 5 ML OU SCH ×2 (09:54→21:18)
[2016-04-14] MEDS: BRIMONIDINE TARTRATE 0.2% OPH SOLN 5 ML OU SCH ×2 (09:55→21:18)
--- NOTE | 2016-04-14 12:17 | Physician Advisory Note ---
Physician Advisor ProgressNote .: [facility], I have reviewed the medical record for this patient. Physician Advisor Statement: This is a combo note of "Blue note eval" today, with late documentation of status review done on 04/12/16 PM below. Possible documentation opportunities if attending agrees: 1. "probable sepsis due to " [Pneumonia or ....?] - Sepsis always needs cause documented. - Supporting findings include fever, tachypnea, "tachycardia" documented, thrombocytopenia, meeting Sepsis-2 criteria for dx. 2. "suspected ___ lobe [LLL?] Pneumonia, may be due to ____" [GP? GN? aspiration? ...] - PNA always needs type bacteria & which lobe(s) involved now. - Official reading of CXR was "no acute dz" but H&P indicated possible early developing pneumonia. Pt may have been dehyd'd on arrival, allowing for neg CXR. - ED documented rales & decreased air movement Lt base. 3. "underweight with protein-calorie malnutrition [state mild, mod, or severe] with BMI 10.1, ____[?wt loss, ?appetite loss, ]" [if possible, give specifics on intake, wt loss, loss of SQ fat & muscle mass, diminished hand ear nose throat physician strength, & clinical importance such as (A) nutritional assessment ordered, (B) modified diet or supplements ordered, (C) additional labs ordered, (D) prolonged wound healing time, (E) delayed infxn clearance] - - - Auditors are strict about the dx of malnutrition - needs to be explicitly spelled out. As always, if concerned about any unstable VS or abnormal labs, please comment on them & note what doing about them, & please document each day the potential clinical problems you are concerned could occur if pt not kept in hospital for tx at this time. ------- Status Discussion: 86yo female w/ chronic co-morbidities including HTN, seizures - presented at [facility] 2/7 AM to ED w/worsening fever (to 102 or 103), intermittently unresponseive, cough, wheeze, chest congestion. Was seen 2/ & given Zithromax but pt continued to progressively worsen since 04/08. In ED, nurse documented pt slow to respond, wheezes, fever since 2/3, "increasingly lethargic & periods she doesn't respond properly", "recent trouble voiding", " pt weak from not taking in fluids". ED dr documented pt drowsy but arousable, mild distress, tachycardic, temp 103, decreased air movement Lt base, rales Lt base. ED dr gave IVF 1L, Tylenol, Cefepime, Levaquin - & after that, the pt was "more awake & less confused". (+) T100.1, R20-22, P86 BP 122/51, WBC 5.4, plts 134, glc 129, alb 3.0, BMI 10.1 , U/A (+)bld/pro, CXR as above. Attending ordered NS @75, IV Cefepime, IV Levaquin, tele, ur cx, AM labs. Status: This elderly pt has obviously already failed outpt tx with Zithromax. He appears to have possible sepsis at time of arrival, has not been taking adequate po intake, has had significant decrease in mental status & ability to take care of himself in association with this acute illness. He is not clinically stable for outpt tx at time of arrival. Tx in inpatient hospital setting medically reasonable & necessary to protect pt' s health, safety, & medical condition. Appropriate for Inpt status. Thanks for your help with documentation accuracy/specificity improvement! Nellie Farooq MD [facility] Physician Advisor, Fellow of Hospital Medicine
[2016-04-14] MEDS: CEFEPIME 1 GM/D5W RTU 50 ML IV SCH (21:18)
[2016-04-15] MEDS: ENOXAPARIN SODIUM INJ 30 MG/0.3 ML DISP.SYRIN SUBCUT SCH (08:35)
[2016-04-15] MEDS: VALSARTAN 160 MG TABLET PO SCH (10:17)
[2016-04-15] MEDS: AMLODIPINE BESYLATE 10 MG TABLET PO SCH (10:17)
[2016-04-15] MEDS: LAMOTRIGINE 100 MG TABLET PO SCH ×2 (10:17→22:47)
[2016-04-15] MEDS: MEGESTROL ACETATE 20 MG TABLET PO SCH (10:18)
[2016-04-15] MEDS: LANSOPRAZOLE 30 MG TAB.RAP.DR PO SCH (10:18)
[2016-04-15] MEDS: LEVETIRACETAM 500 MG TABLET PO SCH ×2 (10:18→22:47)
[2016-04-15] MEDS: DONEPEZIL HCL 5 MG TABLET PO SCH (10:18)
[2016-04-15] MEDS: GUAIFENESIN 600 MG TABLET.SA PO SCH ×2 (10:18→22:47)
[2016-04-15] MEDS: CLOPIDOGREL BISULFATE 75 MG TABLET PO SCH (10:18)
[2016-04-15] MEDS: BRIMONIDINE TARTRATE 0.2% OPH SOLN 5 ML OU SCH ×2 (10:19→22:47)
[2016-04-15] MEDS: BIMATOPROST 0.01% OPH SOLN 2.5 ML/BOTTLE OP SCH (10:20)
[2016-04-15] MEDS: TIMOLOL MALEATE 0.5% OPH SOLN 5 ML OU SCH ×2 (10:20→22:47)
--- NOTE | 2016-04-15 14:58 | PDOC PROGRESS REPORT ---
Subjective Progress Note for:: 04/15/16 Subjective:: Her blood pressure did show some improvement but remain relatively elevated. No chest pain or difficulty with breathing. No nausea or vomiting. Tolerating oral feeding. No reported fever or chills. Remain on IV Cefepime and Levofloxacin coverage. Blood and Urine cultures are no growth to date. Physical Exam Vital Signs: Temp Pulse Resp BP Pulse Ox 98.5 F 84 15 165/97 H 94 04/15/16 07:27 04/15/16 07:27 04/15/16 07:27 04/15/16 07:27 04/15/16 07:27 Intake & Output 04/14/16 04/15/16 04/16/16 06:59 06:59 06:59 Intake Total 320 720 310 Output Total 300 Balance 320 420 310 Weight 33 kg Physical Exam: General appearance: PRESENT: no acute distress, thin Head exam: PRESENT: atraumatic, normocephalic Eye exam: PRESENT: conjunctiva pink, EOMI, PERRLA Mouth exam: PRESENT: moist Respiratory exam: PRESENT: crackles, decreased breath sounds. ABSENT: accessory muscle use, chest wall tenderness, clear to auscultation laura, prolonged expiratory phas, rales, retraction, rhonchi, stridor, symmetrical, tachypnea, unlabored, wheezes, other Cardiovascular exam: PRESENT: RRR. ABSENT: diastolic murmur, rubs, systolic murmur GI/Abdominal exam: PRESENT: normal bowel sounds, soft. ABSENT: distended, guarding, mass, organolmegaly, rebound, tenderness Extremities exam: PRESENT: full ROM Musculoskeletal exam: PRESENT: deformity - related to joint arthritis involvement, other - generalized muscle wasting. Neurological exam: PRESENT: alert, awake Psychiatric exam: PRESENT: appropriate affect, normal mood. ABSENT: homicidal ideation, suicidal ideation Skin exam: PRESENT: dry, intact, warm. ABSENT: cyanosis, rash Results Laboratory Results: 04/13/16 06:52 04/13/16 06:52 Impressions: Chest X-Ray 04/12/16 00:00 IMPRESSION: NO ACUTE RADIOGRAPHIC FINDING IN THE CHEST. NO SIGNIFICANT CHANGE FROM PRIOR STUDY. Assessment & Plan - Diagnosis (1) Toxic metabolic encephalopathy Is this a current diagnosis for this admission?: YesPlan: Improving mental status and in simple responses. (2) Pneumonia Is this a current diagnosis for this admission?: YesPlan: Maintain on current antibiotic coverage. Follow up on culture findings. (3) Probable sepsis Is this a current diagnosis for this admission?: YesPlan: Maintain on current antibiotic coverage. Follow up on culture findings. (4) UTI (urinary tract infection) Is this a current diagnosis for this admission?: YesPlan: Maintain on current antibiotic coverage. Urine culture have been no growth x 2 days. (5) HTN (hypertension) Is this a current diagnosis for this admission?: YesPlan: I will increase Valsartan to 320mg p.o daily. Maintain Amlodipine at 10 mg p.o daily with intent to combine both upon discharge. (6) Seizure disorder Is this a current diagnosis for this admission?: Yes (7) Protein-calorie malnutrition, severe Is this a current diagnosis for this admission?: YesPlan: Continue ral feeding and encourage adequate intake. Add supplemental calorie and protein to meals. - Time Time Spent with patient: 25-34 minutes Medications reviewed and adjusted accordingly: Yes Anticipated discharge: Home with Homehealth Within: Other - Inpatient Certification Medical Necessity: Need Close Monitoring Due to Risk of Patient Decompensation, Need For Continuous Telemetry Monitoring, Risk of Complication if Not Cared For in Hospital Post Hospital Care: D/C Tile Layer Drainage Documentation - Plan Summary Plan Summary: See attending physician orders.
[2016-04-15] MEDS: CEFEPIME 1 GM/D5W RTU 50 ML IV SCH (22:47)
[2016-04-16] MEDS: LAMOTRIGINE 100 MG TABLET PO SCH ×2 (10:52→22:39)
[2016-04-16] MEDS: DONEPEZIL HCL 5 MG TABLET PO SCH (10:52)
[2016-04-16] MEDS: CLOPIDOGREL BISULFATE 75 MG TABLET PO SCH (10:52)
[2016-04-16] MEDS: LANSOPRAZOLE 30 MG TAB.RAP.DR PO SCH (10:53)
[2016-04-16] MEDS: MEGESTROL ACETATE 20 MG TABLET PO SCH (10:53)
[2016-04-16] MEDS: VALSARTAN 160 MG TABLET PO SCH (10:53)
[2016-04-16] MEDS: GUAIFENESIN 600 MG TABLET.SA PO SCH ×2 (10:54→22:39)
[2016-04-16] MEDS: AMLODIPINE BESYLATE 10 MG TABLET PO SCH (10:54)
[2016-04-16] MEDS: LEVETIRACETAM 500 MG TABLET PO SCH ×2 (10:54→22:39)
[2016-04-16] MEDS: LEVOFLOXACIN 500 MG/D5W RTU 500 MG/100 ML RTUPB IV SCH (10:54)
[2016-04-16] MEDS: ENOXAPARIN SODIUM INJ 30 MG/0.3 ML DISP.SYRIN SUBCUT SCH (10:55)
[2016-04-16] MEDS: TIMOLOL MALEATE 0.5% OPH SOLN 5 ML OU SCH ×2 (11:06→22:39)
[2016-04-16] MEDS: BRIMONIDINE TARTRATE 0.2% OPH SOLN 5 ML OU SCH ×2 (11:06→22:39)
[2016-04-16] MEDS: BIMATOPROST 0.01% OPH SOLN 2.5 ML/BOTTLE OP SCH ×2 (11:07→22:40)
--- NOTE | 2016-04-16 13:21 | PDOC PROGRESS REPORT ---
Subjective Progress Note for:: 04/16/16 Subjective:: There is continue improvement in her blood pressure readings on current medication regime. No chest pain or difficulty with breathing. No nausea or vomiting. Tolerating oral feeding. No reported fever or chills. Remain on IV Cefepime and Levofloxacin coverage. Blood remain no growth to date. Physical Exam Vital Signs: Temp Pulse Resp BP Pulse Ox 99.3 F 69 15 136/56 H 96 04/16/16 11:33 04/16/16 11:33 04/16/16 11:33 04/16/16 11:33 04/16/16 11:33 Intake & Output 04/15/16 04/16/16 04/17/16 06:59 06:59 06:59 Intake Total 720 506 Output Total 300 0 Balance 420 506 Weight 33 kg 33 kg Physical Exam: General appearance: PRESENT: no acute distress, thin Head exam: PRESENT: atraumatic, normocephalic Eye exam: PRESENT: conjunctiva pink, EOMI, PERRLA Mouth exam: PRESENT: moist Respiratory exam: PRESENT: crackles, decreased breath sounds. ABSENT: accessory muscle use, chest wall tenderness, clear to auscultation laura, prolonged expiratory phas, rales, retraction, rhonchi, stridor, symmetrical, tachypnea, unlabored, wheezes, other Cardiovascular exam: PRESENT: RRR. ABSENT: diastolic murmur, rubs, systolic murmur GI/Abdominal exam: PRESENT: normal bowel sounds, soft. ABSENT: distended, guarding, mass, organolmegaly, rebound, tenderness Extremities exam: PRESENT: full ROM Musculoskeletal exam: PRESENT: deformity - related to joint arthritis involvement, other - generalized muscle wasting. Neurological exam: PRESENT: alert, awake Psychiatric exam: PRESENT: appropriate affect, normal mood. ABSENT: homicidal ideation, suicidal ideation Skin exam: PRESENT: dry, intact, warm. ABSENT: cyanosis, rash Results Laboratory Results: 04/13/16 06:52 04/13/16 06:52 Impressions: Chest X-Ray 04/12/16 00:00 IMPRESSION: NO ACUTE RADIOGRAPHIC FINDING IN THE CHEST. NO SIGNIFICANT CHANGE FROM PRIOR STUDY. Assessment & Plan - Diagnosis (1) Toxic metabolic encephalopathy Is this a current diagnosis for this admission?: YesPlan: Resolved and improved simple responses. (2) Pneumonia Is this a current diagnosis for this admission?: YesPlan: Maintain on current antibiotic coverage. Follow up on culture findings. (3) Probable sepsis Is this a current diagnosis for this admission?: YesPlan: Maintain on current antibiotic coverage. Follow up on culture findings. (4) UTI (urinary tract infection) Is this a current diagnosis for this admission?: YesPlan: Maintain on current antibiotic coverage. Urine culture have been no growth x 2 days. (5) HTN (hypertension) Is this a current diagnosis for this admission?: YesPlan: Maintain on Valsartan 320mg and Amlodipine 10 mg p.o daily with intent to combine both upon discharge. (6) Seizure disorder Is this a current diagnosis for this admission?: Yes (7) Protein-calorie malnutrition, severe Is this a current diagnosis for this admission?: YesPlan: Continue oral feeding and encourage adequate intake with supplemental Beneprotein and Glucena with meals. - Time Time Spent with patient: 25-34 minutes Medications reviewed and adjusted accordingly: Yes Anticipated discharge: Home with Homehealth Within: within 24 hours - Inpatient Certification Medical Necessity: Need Close Monitoring Due to Risk of Patient Decompensation, Need For IV Fluids, Need for IV Antibiotics, Risk of Complication if Not Cared For in Hospital Post Hospital Care: D/C Regulatory Administrator Documentation - Plan Summary Plan Summary: see attending physician orders.
[2016-04-16] MEDS: CEFEPIME 1 GM/D5W RTU 50 ML IV SCH (22:39)
[2016-04-17] MEDS: ENOXAPARIN SODIUM INJ 30 MG/0.3 ML DISP.SYRIN SUBCUT SCH (08:02)
[2016-04-17] MEDS: LEVETIRACETAM 500 MG TABLET PO SCH (09:38)
[2016-04-17] MEDS: DONEPEZIL HCL 5 MG TABLET PO SCH (09:38)
[2016-04-17] MEDS: LANSOPRAZOLE 30 MG TAB.RAP.DR PO SCH (09:39)
[2016-04-17] MEDS: VALSARTAN 160 MG TABLET PO SCH (09:39)
[2016-04-17] MEDS: MEGESTROL ACETATE 20 MG TABLET PO SCH (09:40)
[2016-04-17] MEDS: LEVOFLOXACIN 500 MG/D5W RTU 500 MG/100 ML RTUPB IV SCH (09:40)
[2016-04-17] MEDS: GUAIFENESIN 600 MG TABLET.SA PO SCH (09:40)
[2016-04-17] MEDS: CLOPIDOGREL BISULFATE 75 MG TABLET PO SCH (09:40)
[2016-04-17] MEDS: AMLODIPINE BESYLATE 10 MG TABLET PO SCH (09:40)
[2016-04-17] MEDS: LAMOTRIGINE 100 MG TABLET PO SCH (09:40)
[2016-04-17] MEDS: TIMOLOL MALEATE 0.5% OPH SOLN 5 ML OU SCH (09:41)
[2016-04-17] MEDS: BRIMONIDINE TARTRATE 0.2% OPH SOLN 5 ML OU SCH (09:41)
--- NOTE | 2016-04-17 11:55 | PDOC DISCHARGE SUMMARY ---
General - Admit/Disc Date/PCP Admission Date/Primary Care Provider: 04/12/16 08:22 Discharge Date: 04/17/16 - Discharge Diagnosis (1) Toxic metabolic encephalopathy Is this a current diagnosis for this admission?: Yes (2) Pneumonia Is this a current diagnosis for this admission?: Yes (3) Probable sepsis Is this a current diagnosis for this admission?: Yes (4) UTI (urinary tract infection) Is this a current diagnosis for this admission?: Yes (5) HTN (hypertension) Is this a current diagnosis for this admission?: Yes (6) Seizure disorder Is this a current diagnosis for this admission?: Yes (7) Protein-calorie malnutrition, severe Is this a current diagnosis for this admission?: Yes - Additional Information Discharge Diet: Cardiac Discharge Activity: Activity As Tolerated, Balance Activity w/Rest, Energy Conservation, Slowly Increase Activity, Supervised Activity Home Medications: Alcaftadine [Lastacaft Drops] 1 drop DAILY 04/12/16 Bimatoprost [Lumigan 0.01% Oph Soln 2.5 ml/Bottle] 1 drop OP ASDIR 04/12/16 Brimonidine Tartrate/Timolol [Combigan 0.2%-0.5% Eye Drops] 1 drop OP Q12 Clopidogrel Bisulfate [Plavix 75 mg Tablet] 75 mg PO DAILY 04/12/16 Docusate Sodium [Doc-Q-Lace] 200 mg PO DAILY 04/12/16 Donepezil HCl [Aricept] 10 mg PO DAILY 04/12/16 Lamotrigine [Lamictal] 400 mg PO QHS 04/12/16 Levetiracetam [Keppra 500 mg Tablet] 500 mg PO BID 04/12/16 Lidocaine [Lidoderm 5% (700 mg) Transdermal Patch] 1 patch TOP DAILY 04/12/16 Megestrol Acetate 40 mg PO DAILY 04/12/16 Memantine HCl [Namenda Xr] 28 mg PO DAILY 04/12/16 Menthol/Zinc Oxide [Calmoseptine Ointment] 1 gm TOP BID 04/12/16 Amlodipine/Valsartan [Amlodipine-Valsartan 10-320 mg] 1 each PO DAILY #30 tablet 04/17/16 Guaifenesin [Mucinex Sr 600 mg Tablet.sa] 600 mg PO Q12 #20 tablet.sa 04/17/16 History of Present Illness History of Present Illness: RUBIN VARGAS is a 86 year old female presented to ED by family with reported worsening altered mentation, fever and coughing since her discharegd from ED on 04/09/16. Family reported administration of prescribed Azithromycin but her temperature was recorded at home at 101 and 102 F prior to presenting to the ED. Family reported associated chest congestion and wheezing. There is no reported nausea or vomiting. She was tolerating oral intake prior to her worsen mental change. Her initial evaluation in the Ed was suggestive of abnormal urinalysis and possible early developing pneumonia. Patient was subsequently advised hospitalization for further evaluation and management. Hospital Course Hospital Course: Patient did respond to antibiotic therapy although her urine and blood culture were no growth for appropriate incubation period. She probable had gram negative pneumonia with negative blood culture. Her urine culture was unrevealing of possible causative organism. Her hospitalization was further compounded by significantly elevated blood pressure necessitating need for blood pressure management medication adjustment. Patient have fully recovered from her encephalopathic presenting symptoms. She had 5 days coverage of IV Cefepime and appropriate dosing of IV Levofloxacin therapy adjusted to her renal indices.She has remain stable clinically and family are agreeable to discharge home today. She will follow up in office as instructed upon discharge. Physical Exam Vital Signs: Temp Pulse Resp BP Pulse Ox 99.1 F 78 17 139/63 H 99 04/17/16 07:18 04/17/16 07:18 04/17/16 07:18 04/17/16 07:18 04/17/16 07:18 Intake & Output 04/16/16 04/17/16 04/18/16 06:59 06:59 06:59 Intake Total 506 666 Output Total 0 Balance 506 666 Weight 33 kg 33.4 kg Physical Exam: General appearance: PRESENT: no acute distress, thin Head exam: PRESENT: atraumatic, normocephalic Eye exam: PRESENT: conjunctiva pink, EOMI, PERRLA Mouth exam: PRESENT: moist Respiratory exam: ABSENT: crackles, decreased breath sounds, accessory muscle use, chest wall tenderness, clear to auscultation laura, prolonged expiratory phas , rales, retraction, rhonchi, stridor, symmetrical, tachypnea, unlabored, wheezes, other Cardiovascular exam: PRESENT: RRR. ABSENT: diastolic murmur, rubs, systolic murmur GI/Abdominal exam: PRESENT: normal bowel sounds, soft. ABSENT: distended, guarding, mass, organolmegaly, rebound, tenderness Extremities exam: PRESENT: full ROM Musculoskeletal exam: PRESENT: deformity - related to joint arthritis involvement, other - generalized muscle wasting. Neurological exam: PRESENT: alert, awake Psychiatric exam: PRESENT: appropriate affect, normal mood. ABSENT: homicidal ideation, suicidal ideation Skin exam: PRESENT: dry, intact, warm. ABSENT: cyanosis, rash Results Laboratory Results: 04/13/16 06:52 04/13/16 06:52 Impressions: Chest X-Ray 04/12/16 00:00 IMPRESSION: NO ACUTE RADIOGRAPHIC FINDING IN THE CHEST. NO SIGNIFICANT CHANGE FROM PRIOR STUDY. Qualifiers PATEINT BEING DISCHARGED WITH ANY OF THE FOLLOWING DIAGNOSIS?: No Plan Discharge Plan: D/C home today. Follow up in the office as instructed upon discharge. Time Spent: Less than 30 Minutes
[2016-04-17 13:15] VITALS: BP 143/59
[2016-04-17] MEDS ORDERED: CEFEPIME 1 GM/D5W RTU 1 GM/50 ML RTUPB IV ONE (13:30)
[2016-04-17] MEDS ORDERED: CEFEPIME 1 GM/D5W RTU 1 GM/50 ML RTUPB IV SCH (22:00)
== END 2016-04-17 14:58 | disposition home health service (06) | DRG 871 ==
LOC: ER 23:49 → EH 04-12 02:36 → UNDOADMIN 04-12 02:36 → EH 04-12 06:40 → 4S 04-12 06:40
PROVIDERS: ADMIT Internal Medicine Geriatric Medicine; ATTEND Internal Medicine Geriatric Medicine
DX: A41.9 Sepsis, unspecified organism (principal); J15.6 Pneumonia due to other Gram-negative bacteria; G92 Toxic encephalopathy; E43 Unspecified severe protein-calorie malnutrition; N39.0 Urinary tract infection, site not specified; Z68.1 Body mass index [BMI] 19.9 or less, adult; I10 Essential (primary) hypertension; G40.909 Epilepsy, unspecified, not intractable, without status epilepticus; M19.90 Unspecified osteoarthritis, unspecified site; Z79.899 Other long term (current) drug therapy; Z88.0 Allergy status to penicillin
CPT/HCPCS: 36415; 51701; 71010; 80053; 81001; 82550; 82553; 82803; 83605; 84484; 85025; 85610; 85730; 87040; 87086; 87804; 93005; 96361; 96365; 96368; 99285; J0360; J0692; J1650; J1956; J3490; J7030

== ENCOUNTER → 2016-12-26 | Outpatient (CLI) | payer MEDICARE ==
--- NOTE | 2016-12-26 14:09 | RADIOLOGY REPORT (SQ) ---
EXAM DESCRIPTION: RIBS LEFT W/PA CHEST COMPLETED DATE/TIME: 12/26/2016 10:16 am REASON FOR STUDY: CHEST PAIN, UNSPECIFIED R07.9 CHEST PAIN, UNSPECIFIED COMPARISON: Chest films 04/12/2016, 04/09/2016, 05/11/2015 TECHNIQUE: Frontal view of the chest and additional views of the left ribs acquired. NUMBER OF VIEWS: PA chest, left ribs two views LIMITATIONS: None. FINDINGS: FRONTAL CXR: There is minimal left basilar atelectasis. Lungs are otherwise well inflated and free of focal infiltrates. No pleural effusion. No pneumothorax. No cardiomegaly. RIBS: Anterior edge of the left 10th rib demonstrates mild cortical buckling from an acute fracture. OTHER: There is diffuse osteoporosis, and a lytic permeative appearance of the right proximal humeral diaphysis at the edge of the chest fell, worrisome for multiple myeloma. No gross acute thoracic compression deformity. IMPRESSION: Minimal left basilar atelectasis. Anterior edge left 10th rib buckle fracture, likely acute Diffuse osteoporosis with a lytic permeative appearance proximal right humerus, worrisome for multipl e myeloma COMMENT: SITE OF TRAUMA/COMPLAINT MARKED/STAMP COMPLETED: Yes TECHNICAL DOCUMENTATION: JOB ID: [id number] [employer]- All Rights Reserved
== END ==
LOC: RAD 09:50
PROVIDERS: ATTEND Internal Medicine Geriatric Medicine
DX: R07.9 Chest pain, unspecified (principal)

== ENCOUNTER → 2016-12-28 | Outpatient (CLI) | payer MEDICARE ==
[2016-12-29 07:42] LABS: IMMUNOGLOBULIN A 328 mg/dL (64-422); IMMUNOGLOBULIN G 927 mg/dL (700-1600); IMMUNOGLOBULIN M 132 mg/dL (26-217)
[2016-12-29 09:51] LABS: IMMUNOGLOBULIN E 26 IU/mL (0-100)
[2016-12-29 16:40] LABS: A/G RATIO 1.2 (0.7-1.7); ALBUMIN 2 3.5 g/dL (2.9-4.4); ALPHA-1-GLOBULIN 2 0.2 g/dL (0.0-0.4); GAMMA GLOBULIN 0.8 g/dL (0.4-1.8); PROTEIN TOTAL SERUM 6.5 g/dL (6.0-8.5)
== END ==
LOC: OD 10:45
PROVIDERS: ATTEND Internal Medicine Geriatric Medicine
DX: R93.8 Abnormal findings on diagnostic imaging of other specified body structures (principal)
CPT/HCPCS: 36415; 82784; 82785; 84165

== ENCOUNTER → 2018-05-01 | Outpatient (CLI) | payer MEDICARE ==
[2018-05-01 10:10] LABS: ALANINE AMINOTRANSFERASE 36 U/L (9-52); ALBUMIN 3.4 g/dL (3.5-5.0); ALKALINE PHOSPHATASE 61 U/L (38-126); ANION GAP 7 (5-19); ASPARTATE AMINO TRANSFERASE 28 U/L (14-36); BILIRUBIN,DIRECT 0.2 mg/dL (0.0-0.4); BILIRUBIN,TOTAL 0.3 mg/dL (0.2-1.3); BLOOD UREA NITROGEN 13 mg/dL (7-20); CALCIUM 10.1 mg/dL (8.4-10.2); CARBON DIOXIDE 28 mmol/L (22-30); CHLORIDE 109 mmol/L (98-107); CHOLESTEROL 162.39 mg/dL (0-200); GLUCOSE 118 mg/dL (75-110); POTASSIUM 4.4 mmol/L (3.6-5.0); SODIUM 144.3 mmol/L (137-145); TOTAL PROTEIN 6.2 g/dL (6.3-8.2); TRIGLYCERIDES 119 mg/dL (<150)
[2018-05-01 10:21] LABS: DIRECT LDL 96 mg/dL (<100)
== END ==
LOC: OD 08:14
PROVIDERS: ATTEND Internal Medicine Geriatric Medicine
DX: G40.909 Epilepsy, unspecified, not intractable, without status epilepticus (principal); I10 Essential (primary) hypertension
CPT/HCPCS: 36415; 80053; 80061; 80175; 80177

== ENCOUNTER → 2019-01-03 | Outpatient (CLI) | payer MEDICARE ==
--- NOTE | 2019-01-03 13:38 | RADIOLOGY REPORT (SQ) ---
EXAM DESCRIPTION: FOOT RIGHT COMPLETE COMPLETED DATE/TIME: 01/03/2019 12:13 pm REASON FOR STUDY: BENIGN NEOPLASM OF SHORT BONES OF RIGHT LOWER LIMB D16.31 BENIGN NEOPLASM OF SHOR T BONES OF RIGHT LOWER LIMB COMPARISON: None. NUMBER OF VIEWS: Three views. TECHNIQUE: AP, lateral and oblique radiographic images acquired of the right foot. LIMITATIONS: None. FINDINGS: MINERALIZATION: Decreased. BONES: No acute fracture or dislocation. No worrisome bone lesions. JOINTS: No effusions. SOFT TISSUES: Ill-defined increased density along the 1st distal phalanx possibly related to soft tis diana lesion or nail bed. OTHER: No other significant finding. IMPRESSION: No acute bony abnormality. Ill-defined increased density along the distal 1st phalanx possibly related to soft tissue lesion or nail. Recommend correlation with physical exam. TECHNICAL DOCUMENTATION: JOB ID: [id number] [employer]- All Rights Reserved Reading location - IP/workstation name: [email or web address]
== END ==
LOC: OD 11:56
PROVIDERS: ATTEND Podiatrist Foot & Ankle Surgery
DX: D16.31 Benign neoplasm of short bones of right lower limb (principal)